=== PATIENT | male | born 1980 | race Caucasian/White ===

== ENCOUNTER 2017-01-17 10:00 | Inpatient (IN) | payer OTHER ==
[~2017-01-17] VITALS: Ht 182.9 cm; Wt 104.3 kg
--- NOTE | ~2017-01-17 | DS ---
Unit #: [id number] #: [id number] [facility]: [facility] [id number] [facility] [address] [place] [address] [id number] I MR#: [id number] NAME: LISA BAJWA ROOM: 80 Age: 36 Sex: M Admission Date: 01/17/2017 : 1980 Discharge Date: 01/24/2017 Attending Physician: Avery Clayton M.D. Primary Care Physician: Generic Doctor Not In System DISCHARGE SUMMARY IDENTIFICATION DATA Mr. Bajwa is a 36-year-old white male who is a resident of [place], [place], and he was transferred to us from [facility] on a voluntary basis. DISCHARGE DIAGNOSES PSYCHIATRIC: Bipolar disorder, most recent episode, depressed, recurrent, moderate, with psychosis. Methamphetamine dependence, moderate. Opioid dependence, moderate. MEDICAL: Grand mal seizures. Dyslipidemia. STRESSORS: Moderate psychosocial stressors. HISTORY OF PRESENT ILLNESS Same as in initial psychiatric evaluation. PAST PSYCHIATRIC HISTORY Same as in initial psychiatric evaluation. PAST MEDICAL HISTORY Same as in initial psychiatric evaluation. HOSPITAL COURSE The patient was admitted to the adult chemical dependency and psychiatric unit at [facility] n[facility] Steen and was oriented to the hospital environment. Routine p.r.n. medications were initiated, and he was started back on his home medication. Medications were adjusted, and he was closely monitored. He was exhibiting some acute psychosis, and Haldol was initiated, and he was able to show a fairly decent therapeutic response (1) __ it was decided that he will be discharged and will continue treatment on outpatient basis. DISCHARGE MEDICATIONS 1. Depakote 1000 mg twice a day for bipolar. 2. Haldol 5 mg twice a day for psychosis. 3. Cogentin 1 mg twice a day for EPS. 4. Wellbutrin XL 300 mg in the morning for depression. CONDITION AT DISCHARGE Stable. PROGNOSIS Fair. Unit #: [id number] #: [id number] Patient: LISA BAJWA Dictated by... Avery Clayton M.D. IAA/bzg TD: 01/24/2017 10:17 JOB #: [id number] DISCHARGE SUMMARY Page 1 of 1 X Avery Clayton MD DISCHARGE SUMMARY
--- NOTE | ~2017-01-17 | PN ---
Unit #: [id number] #: [id number] Patient: LISA BAJWA [id number] [facility] [address] [place] [address] [id number] MR#: [id number] NAME: LISA BAJWA ROOM: [facility] Age: 36 Sex: M Admission Date: 01/17/2017 : 1980 Attending Physician: Avery Clayton M.D. Admitting Physician: Avery Clayton M.D. Primary Care Physician: Rukhsana Doctor Not In System [facility] PROGRESS NOTES DATE 01/18/2017 DISCUSSION Mr. Bajwa is a 36-year-old, white male who was seen today and chart was reviewed and case was discussed with the staff. He has been anxious, withdrawn and rather seclusive to himself and has been reporting feelings of hopelessness. Meanwhile, he has been taking medications and tolerating them fairly well with no reported side effects. MENTAL STATUS EXAM Young white male who was casually dressed with fair personal hygiene, appears to be in no acute distress or discomfort. He was awake and alert with intact orientation. His mood was anxious with congruent affect. He denies any suicidal or homicidal ideation. Also, denies any auditory or visual hallucinations. His insight and judgement remains slightly impaired. TREATMENT PLAN 1. We will continue him on his current medications and treatment protocol. We will monitor his response to the medication and make further adjustments as needed. 2. We will continue to follow up. Dictated by... Miguel Chauhan/bimal TD: 01/20/2017 04:03 JOB #: [id number] Unit #: [id number] #: [id number] Patient: LISA BAJWA [facility] PROGRESS NOTES Page 1 of 1 X Avery Clyaton MD PROGRESS NOTE
--- NOTE | ~2017-01-17 | PN ---
Unit #: [id number] #: [id number] Patient: LISA BAJWA [id number] [facility] [address] [place] [address] [id number] I MR#: [id number] NAME: LISA BAJWA ROOM: [facility] Age: 36 Sex: M Admission Date: 01/17/2017 : 1980 Attending Physician: Avery Clayton M.D. Admitting Physician: Avery Clayton M.D. Primary Care Physician: Rukhsana Doctor Not In System [facility] PROGRESS NOTES DATE January 19, 2017 DISCUSSION Mr. Bajwa is a 36-year-old white male, with substance abuse and mood disorder, who was seen today and chart was reviewed and the case was discussed with the staff. He has been anxious, withdrawn, depressed, and father seclusive to himself. He does appear to be in some distress and discomfort. He has been taking the medications and tolerating them fairly well with no reported side effects. MENTAL STATUS EXAMINATION Young white male, who was casually dressed with fair personal hygiene and appears to be in slight distress and discomfort. He was awake and alert with intact orientation. His mood is anxious and depressed with a congruent affect. His speech is slow and goal-directed. He reports having suicidal ideations but denies any homicidal ideations. His insight and judgment remain slightly impaired. TREATMENT PLAN 1. We will continue him on his current medications and treatment protocol, and will monitor his response to the medications, and make further adjustments as needed. 2. We will continue to followup. Dictated by... Miguel Chauhan/jak TD: 01/20/2017 13:02 JOB #: [id number] Unit #: [id number] #: [id number] Patient: LISA BAJWA PROGRESS NOTES Page 1 of 1 X Avery Clayton MD PROGRESS NOTE
--- NOTE | ~2017-01-17 | PN ---
Unit #: [id number] #: [id number] Patient: LISA BAJWA [id number] [facility] [address] [place] [address] [id number] I MR#: [id number] NAME: LISA BAJWA ROOM: P180 Age: 36 Sex: M Admission Date: 01/17/2017 : 1980 Attending Physician: Avery Clayton M.D. Admitting Physician: Avery Clayton M.D. Primary Care Physician: Generic Doctor Not In System [facility] PROGRESS NOTES DATE 01/20/2017 DISCUSSION Mr. Bajwa today was seen for Dr. Clayton who is on vacation. He continues to report some irritability and mood swings. He also reports some anxiety. He is alert and fully oriented with no evidence of psychosis at this time. He is compliant with his medications. ASSESSMENT Bipolar disorder, substance dependence. PLAN Continue current treatment plan. Dictated by... Miguel Gallegos/bimal TD: 01/23/2017 03:26 JOB #: [id number] [facility] PROGRESS NOTES Page 1 of 1 X Santi Cyr MD PROGRESS NOTE
--- NOTE | ~2017-01-17 | CO ---
Unit #: [id number] #: [id number] Patient: LISA BAJWA [id number] [place] [address] [id number] MR#: [id number] NAME: LISA BAJWA ROOM: [facility] Age: 36 Sex: M Admission Date: 01/17/2017 : 1980 Attending Physician: Avery Clayton M.D. Consultation Date: 01/18/2017 CONSULTATION REPORT REASON FOR CONSULTATION Right foot abscess and allergies. SUBJECTIVE The patient states that [facility] and swelling. The patient admits that he had injected IV drugs into his foot. The patient states he was treated at an [facility] facility for this. He denies any nausea, vomiting, fever, or chills. The patient states that he has been having some slight cough and drainage for the past 2 mornings. He does endorse that he does have seasonal allergies. OBJECTIVE GENERAL: The patient is awake, alert, in no acute distress. VITAL SIGNS: Stable. CHEST: Lungs are clear. CARDIOVASCULAR: S1, S2. SKIN: Warm and dry. Small puncture wound seen on the right foot with no erythema. There is no streaking and it is not warm to touch. NEUROLOGIC: Cranial nerves 2 through 12 intact. Alert and oriented x2 to x3. ASSESSMENT 1. Right foot abscess. 2. Allergies. PLAN 1. At this time, recommend to keep the wound dry. There are no signs or symptoms of infection. [facility]. 2. Allergies. We will start the patient on Zyrtec 10 mg p.o. daily. Dictated by... Dayana Sampson A.P.R.N. for Jose Manuel Lorenzo M.D. AM/mark TD: 01/18/2017 13:33 JOB #: [id number] Unit #: [id number] #: [id number] Patient: LISA BAJWA CONSULTATION REPORT Page 1 of 1 X Dayana Sampson APRN CONSULTATION REPORT
--- NOTE | ~2017-01-17 | PA ---
Unit #: [id number] #: [id number] Patient: LISA BAJWA [id number] [facility] [address] [place] [address] [id number] I MR#: [id number] NAME: LISA BAJWA ROOM: P184 Age: 36 Sex: M Admission Date: 01/17/2017 : 1980 Date of Assessment: Attending Physician: Avery Clayton M.D. Admitting Physician: Avery Clayton M.D. Primary Care Physician: Generic Doctor Not In System PSYCHIATRIC ASSESSMENT DATE OF SERVICE 01/17/2017. IDENTIFYING DATA Mr. Bajwa is a 36-year-old single white male, who is a resident of [place], [place], and was transferred to us from [facility] on a voluntary basis. CHIEF COMPLAINT "I told them I was going to kill myself somewhere." HISTORY OF PRESENT ILLNESS Mr. Bajwa is a 36-year-old white male, who was brought to the hospital with disorganized, agitated, and paranoid state of mind. Stating "I told them I was going to kill myself somewhere, I do not have nothing to left to live for anymore, I have been crying constantly, seeing stuff people who are not there anymore, I I have not slept in a month, I have not ate nothing like three weeks." Reports that he resumed to use methamphetamine a month ago and also has been using marijuana and taking about 20 [place] today and "I have been using people's everything." He reports suicidal ideations and "I just broke down and went crazy, I want to stab myself, overdosed myself, my life just bad." He was seen to be quite anxious, withdrawn, depressed, unkempt, disheveled, agitated, irritable with significant paranoia and delusional behavior. Stating that his roommate in his room was trying to shoot him and kill him and he needs to get out of that room. SUBSTANCE ABUSE HISTORY The patient reports history of alcohol, cannabis, opioids, and methamphetamine abuse, and currently IV methamphetamine has been his drug of choice, though he has been taking Lortab on a quite regular basis. PAST PSYCHIATRIC HISTORY The patient has had a history of psychiatric [facility] at [facility]. Review of the medical records indicated that he is supposed to be on Depakote and Elavil, but has been noncompliant with medication and as such, has been decompensating. PAST MEDICAL HISTORY The patient's medical history is significant for history of grand-mal seizures and dyslipidemia. ALLERGIES Unit #: [id number] #: [id number] Patient: LISA BAJWA Penicillin, Toradol, and Sudafed. PERSONAL AND SOCIAL HISTORY This is a 36-year-old white male, who reports that he is single, unemployed, and homeless and has poor social support system. MENTAL STATUS EXAMINATION This is a young white male, who was casually dressed with fair personal hygiene, appears to be in no acute distress or discomfort. He was awake and alert on interaction with intact orientation to time, place, and person. His mood was anxious and depressed with a congruent affect. His speech was slow and restricted in content. His thought processes were disorganized with some looseness of associations and paranoid ideations. His insight and judgment remain significantly impaired. DIAGNOSTIC IMPRESSION Psychiatric: Bipolar disorder, most recent episode depressed, recurrent, moderate, with psychosis; methamphetamine dependence, moderate; opioid dependence, moderate. Medical: Grand mal seizures and dyslipidemia. Stressors: Moderate psychosocial stressors. TREATMENT PLAN 1. The patient has presented with history of mood disorder, and has been decompensating, and will need inpatient hospitalization for safety and stabilization. We will start him back on his home medications. We will adjust the medications and monitor response. 2. Supportive therapy was provided to the patient. 3. Safe, structured, and nourishing environment will be provided. ESTIMATED LENGTH OF STAY 5 to 7 days. ABILITY TO HELP SELF Limited. WILLINGNESS TO HELP SELF The patient appears to be willing to help self. STRENGTHS 1. Communicative. 2. Cooperative. PROBLEMS 1. Chronic dysphoric symptoms. 2. Poor social support system. DISCHARGE CRITERIA This will be contingent upon the patient's ability to show resolution of his depression and psychosis, and his ability to stay safe to himself, particularly after discharge from the hospital. Dictated by... Miguel Chauhan/mark Unit #: [id number] #: [id number] Patient: LISA BAJWA TD: 01/18/2017 11:29 JOB #: [id number] PSYCHIATRIC ASSESSMENT Page 1 of 1 X Avery Clayton MD PSYCHIATRIC ASSESSMENT
--- NOTE | ~2017-01-17 | HP ---
Unit #: [id number] #: [id number] Patient: LISA BAJWA [id number] [place] [address] [id number] I MR#: [id number] NAME: LISA BAJWA ROOM: P208 Age: 36 Sex: M Admission Date: 01/17/2017 : 1980 Attending Physician: Avery Clayton M.D. Admitting Physician: Avery Clayton M.D. Primary Care Physician: Generic Doctor Not In System HISTORY AND PHYSICAL HISTORY OF PRESENT ILLNESS Lisa is a 36 year old admitted to [address] [place] [address] because of his illicit substance abuse which includes IV methamphetamine. PAST MEDICAL HISTORY 1. Long history of illicit substance abuse to include IV meth. 2. History of colon polyps. 3. Seizure disorder. 4. Degenerative disc disease. PAST SURGICAL HISTORY 1. Right knee. 2. Colon polyps removed, 2005. ALLERGIES Penicillin (rash), Sudafed (rash). SOCIAL HISTORY Smokes 1 pack per day. Denies alcohol. Admits to a history of illicit substance abuse to include IV methamphetamine. FAMILY HISTORY Medically noncontributory. REVIEW OF SYSTEMS CONSTITUTIONAL: No fever or chills. HEENT: Denies any sore throat, ear pain or runny nose. CARDIOVASCULAR: Denies chest pain, irregular heart rhythm or palpitations. CHEST: Denies shortness of breath or cough. No hemoptysis. GASTROINTESTINAL: Denies nausea, vomiting, diarrhea or chronic constipation. ENDOCRINE: Denies history of increased thirst or urination. No recent significant weight loss or gain. GENITOURINARY: Denies dysuria, frequency, or hematuria. SKIN: He does report redness along the top of his right foot where he has been shooting his drugs most recently. HEMATOLOGIC: Denies history of increased bleeding or bruising. MUSCULOSKELETAL: Denies any hot, swollen joints. No generalized muscle pain. NEUROLOGIC: Denies problems with vision or speech. No frequent, severe headaches. No numbness, tingling or weakness in any extremities. Denies loss of bladder or bowel control. Unit #: [id number] #: [id number] Patient: LISA BAJWA CURRENT MEDICATIONS 1. Valproic acid 1000 mg q.h.s. 2. Lipitor 40 mg daily. 3. Amitriptyline 50 mg q.h.s. 4. Vibramycin 100 mg b.i.d. 5. Protonix 40 mg b.i.d. 6. Vistaril p.r.n. 7. Desyrel p.r.n. 8. Milk of Magnesia p.r.n. 9. Maalox p.r.n. 10. Tylenol p.r.n. 11. Nicotine patch 14 mg daily. 12. Aspirin 81 mg daily. 13. Lioresal 20 mg daily. PHYSICAL EXAMINATION GENERAL: Alert, well-nourished, in no apparent distress. VITAL SIGNS: Blood pressure 146/84, heart rate 80, respirations 16, temperature 98.6. WEIGHT: 230. HEIGHT: 6 feet 0 inches. SKIN: Warm and dry without rash. He does have redness across the top of his right foot. No pus or heat is noted. HEENT: Normocephalic. TMs not viewed. Oral and nasal passages clear. Conjunctivae clear. PERRLA. EOMs intact. NECK: Supple without lymphadenopathy or thyromegaly. HEART: Regular rate and rhythm without murmur. LUNGS: Clear. ABDOMEN: Soft, nontender. : Not done. EXTREMITIES: No evidence of cyanosis, clubbing or edema. Moves all without focal deficit. NEUROLOGICAL: Grossly within normal limits. Cranial Nerves: II: Visual rosen are intact. III, IV AND : Extraocular movements are intact. Pupils are equal, round and reactive to light. V: Facial sensation is grossly normal. VII: Facial movements and expression are normal. VIII: Auditory acuity grossly intact. IX, X: Uvula is midline. Phonation is normal. XI: Patient shrugs shoulders and turns head normally. XII: Tongue protrudes in the midline. Sensory and Motor Function: Sensory and motor sensation is grossly normal. Motor: moves all extremities well. Coordination: Gait is normal. Deep Tendon Reflexes: Intact. IMPRESSION 1. Psychiatric admission. 2. Cellulitis, right foot. This is site of IV drug use. RECOMMENDATIONS PSYCHIATRIC: Per psychiatrist. MEDICAL: 1. See no contraindication to participate in facility's activities. 2. Detox per protocol. 3. Continue Vibramycin. MEDICAL PROGNOSIS Good. Unit #: [id number] #: [id number] Patient: LISA BAJWA MEDICAL CONDITION Stable. Dictated by... Inga Thao P.A.-C. for Miguel Mercedes/emily TD: 01/17/2017 21:41 JOB #: [id number] HISTORY AND PHYSICAL Page 1 of 1 X Inga Thao X HISTORY AND PHYSICAL
[~2017-01-17 10:00] MED LIST: CIPRO PO; COLACE PO; FLEXERIL PO; IBUPROFEN PO; KETOPROFEN PO; PHENERGAN PO; VICODIN 5/500 T1 TAB PO
[2017-01-20 12:30] LABS: BASOPHIL% 0.4 % (0-2.5); EOSINOPHIL# 0.3 X10e3 (0-0.7); EOSINOPHIL% 5.1 % (0.0-7.0); HEMATOCRIT 42.3 % (38.0-50.0); HEMOGLOBIN 14.2 gm/dL (13.0-16.0); LYMPHOCYTE% 36.1 % (17.0-45.0); MEAN CELL VOLUME 91.2 FL (83-96); MEAN CORPUSCULAR HEMOGLOBIN 30.7 PG (28-34); MEAN CORPUSCULAR HGB CONC 33.6 g/dL (30-36); MEAN PLATELET VOLUME 8.3 FL (6.5-11.5); MONOCYTE# 0.5 X10e3 (0-1.0); MONOCYTE% 8.3 % (3.0-12.0); NEUTROPHIL# 2.8 X10e3 (1.5-7.1); NEUTROPHIL% 50.1 % (40-75); PLATELET COUNT 195 X10e3 (140-420); RED BLOOD COUNT 4.64 X10e (3.90-5.60); RED CELL DISTRIBUTION WIDTH 14.4 % (11.0-15.5); WHITE BLOOD COUNT 5.5 X10e3 (4.0-10.5)
[2017-01-20 12:32] LABS: DIFF IND NO
[2017-01-20 12:43] LABS: ALBUMIN SERUM 3.4 g/dL (3.5-5.0); BILIRUBIN,TOTAL 0.2 mg/dL (0.2-2.0); BUN/CREATININE RATIO 17.14; CALCIUM SERUM 8.8 mg/dL (8.4-10.2); CREATININE SERUM 0.7 mg/dL (0.6-1.4); GLOM FILT RATE Estimated 121.5 mL/min (>60); POTASSIUM 4.1 mmol/L (3.5-5.1); PROTEIN TOTAL SERUM 6.3 g/dL (6.0-8.3)
[2017-01-22 09:47] LABS: URINE APPEARANCE CLEAR; URINE BILIRUBIN NEG (NEG); URINE BLOOD NEG (NEG); URINE COLOR YELLOW; URINE GLUCOSE NEG (NEG); URINE KETONE NEG (NEG); URINE LEUKOCYTE ESTERASE NEG (NEG); URINE NITRATE NEG (NEG); URINE PROTEIN NEG (NEG); URINE SPECIFIC GRAVITY 1.012 (1.003-1.035); URINE UROBILINOGEN 0.2 MG/DL (NEG)
[2017-01-22 10:35] LABS: AMPHETAMINE NEG (NEG); BARBITURATES NEG (NEG); BENZODIAZEPINES NEG (NEG); COCAINE NEG (NEG); MARIJUANA NEG (NEG); OPIATES NEG (NEG); TRICYCLIC ANTIDEPRESSANTS POS (NEG); U METHADONE NEG (NEG)
[2017-01-23 09:46] LABS: ALBUMIN SERUM 3.3 g/dL (3.5-5.0); BILIRUBIN,TOTAL 0.5 mg/dL (0.2-2.0); BUN/CREATININE RATIO 18.57; CALCIUM SERUM 8.6 mg/dL (8.4-10.2); CREATININE SERUM 0.7 mg/dL (0.6-1.4); GLOM FILT RATE Estimated 121.5 mL/min (>60); POTASSIUM 4.1 mmol/L (3.5-5.1); PROTEIN TOTAL SERUM 6.1 g/dL (6.0-8.3)
[2017-01-24 01:21] LABS: HA AB IGM (HEPPAN) Nonreactive (()); HB CORE AB IGM (HEPPAN) Nonreactive (Nonreactive); HB S AG (HEPPAN) Nonreactive (Nonreactive); HEP C AB (HEPPAN) Nonreactive (Nonreactive); HEP C AB SIGNAL TO CUTOFF 0.06 ratio (<1.00)
== END 2017-01-24 12:55 | DRG 885 ==
LOC: P2S 13:12 → P1E 13:12
PROVIDERS: Psychiatry & Neurology Psychiatry
PROC: HZ2ZZZZ Detoxification Services for Substance Abuse Treatment (ICD-10-PCS; principal; 2017-01-17)
DX: F31.5 Bipolar disorder, current episode depressed, severe, with psychotic features (principal); F11.20 Opioid dependence, uncomplicated; F15.20 Other stimulant dependence, uncomplicated; G40.409 Other generalized epilepsy and epileptic syndromes, not intractable, without status epilepticus; L03.115 Cellulitis of right lower limb; E78.5 Hyperlipidemia, unspecified
CPT/HCPCS: 80053; 80074; 80164; 80307; 81003; 85025; 87806